=== PATIENT | female | born 1960 | race Caucasian/White ===

== ENCOUNTER 2020-02-13 11:56 | Outpatient (REF) | payer OTHER, SELFPAY ==
[2020-02-13 14:28] LABS: Estimated Average Glucose 306 mg/dL; Hemoglobin A1c % 12.3 %
[2020-02-13 15:19] LABS: Alanine Aminotransferase 20 U/L (0-31); Alkaline Phosphatase 124 U/L (39-117); Anion Gap 13 (12-20); Aspartate Amino Transferase 13 U/L (5-31); Bilirubin Total < 0.2 mg/dL (0.0-1.0); Blood Urea Nitrogen 11 mg/dL (9-16); Calcium 9.2 mg/dL (8.4-10.2); Carbon Dioxide 29 mmol/L (22-29); Chloride 100 mmol/L (96-108); Cholesterol 221 mg/dL; Estimated Glomerular Filt Rate > 60; Glucose Fasting 110 mg/dL (60-99); HDL Cholesterol 52 mg/dL; LDL Cholesterol Calculated 142 mg/dl; Potassium 3.4 mmol/l (3.3-5.1); Sodium 139 mmol/L (135-145); Total Protein 7.1 g/dL (6.5-8.0); Triglycerides 135 mg/dL
[2020-02-15 17:21] LABS: Lyme Abs Screen <0.90 index
== END 2020-02-13 11:57 | disposition home or self-care (01) ==
LOC: HO.HMGCLDS 11:56
PROVIDERS: PCP Internal Medicine; Visit Provider Internal Medicine
DX: E11.9 Type 2 diabetes mellitus without complications (principal); F41.8 Other specified anxiety disorders; I10 Essential (primary) hypertension
CPT/HCPCS: 80053; 80061; 83036; 84443; 86618

== ENCOUNTER → 2020-03-02 11:30 | Outpatient (BNVA) | payer OTHER, SELFPAY | PROVIDERS: PCP Internal Medicine; Visit Provider Nurse Practitioner Gerontology | DX: E11.65 Type 2 diabetes mellitus with hyperglycemia (principal); I10 Essential (primary) hypertension; E78.5 Hyperlipidemia, unspecified; Z79.4 Long term (current) use of insulin | CPT/HCPCS: 82947 ==

== ENCOUNTER → 2020-04-06 11:20 | Outpatient (BNVA) | payer OTHER, SELFPAY | PROVIDERS: PCP Internal Medicine; Visit Provider Nurse Practitioner Gerontology | DX: E11.65 Type 2 diabetes mellitus with hyperglycemia (principal); Z79.4 Long term (current) use of insulin; E78.5 Hyperlipidemia, unspecified; I10 Essential (primary) hypertension; E66.01 Morbid (severe) obesity due to excess calories; Z68.38 Body mass index [BMI] 38.0-38.9, adult | CPT/HCPCS: 82947 ==

== ENCOUNTER 2020-05-28 10:53 | Outpatient (REF) | payer OTHER, SELFPAY ==
[2020-05-28 15:36] LABS: Estimated Average Glucose 134 mg/dL; Hemoglobin A1c % 6.3 %
== END 2020-05-28 10:54 | disposition home or self-care (01) ==
LOC: HO.10HDL 10:53
PROVIDERS: Visit Provider Nurse Practitioner Gerontology
DX: E11.65 Type 2 diabetes mellitus with hyperglycemia (principal); Z79.4 Long term (current) use of insulin
CPT/HCPCS: 36415; 83036

== ENCOUNTER 2020-06-07 10:02 | Outpatient (REF) | payer OTHER, SELFPAY ==
--- NOTE | ~2020-06-07 | FL_ITS ---
EXAMINATION: FL BARIUM SWALLOW CLINICAL INFORMATION: Dysphagia. Patient provides additional history of Zenker's diverticulum status post closure x2 in the distant past. COMPARISON: None TECHNIQUE: Barium swallow examination is performed using fluoroscopic evaluation in addition to multiple fluoroscopic spot views. The patient is imaged both upright and prone and using both thick and thin sulfate along with effervescent granules. Fluoroscopy time: 1.7 minutes DAP: 15.29 Gycm2 Images: 93 FINDINGS: Preliminary fluoroscopic spot views in AP and lateral planes show no cervical surgical clips. Swallowing function is normal and there is no aspiration. The cervical esophagus has a Zenker's diverticula which promptly fills and empties during swallowing. There is no significant retention of contrast after swallowing. The diverticulum measures approximately 3 cervical vertebral bodies in vertical dimension; approximately 1 cervical vertebral bodies in AP dimension; and 1.25 cervical vertebral bodies dimension across. The thoracic esophagus show normal motility. No tertiary contractions. There is no obstruction or stricture or ulceration. No hiatal hernia or reflux demonstrated during fluoroscopy. FL/FL barium swallow IMPRESSION: 1. Cervical Zenker's diverticulum which promptly fills and empties with swallowing. No significant retention of contrast after swallowing. No aspiration. 2. Thoracic esophagus unremarkable.
== END 2020-06-07 10:03 | disposition home or self-care (01) ==
LOC: HO.XRAY 10:02
PROVIDERS: Visit Provider Internal Medicine
DX: R13.10 Dysphagia, unspecified (principal)
CPT/HCPCS: 74220

== ENCOUNTER 2020-06-15 08:58 | Day surgery (SDC) | payer OTHER, SELFPAY ==
[2020-06-12 12:19] VITALS: BMI 33.6
--- NOTE | 2020-06-14 10:20 | HO.ANESPROP2 ---
Documented by User: Namita Lima 06/14/20 10:24 HPI - Anesthesia Eval Consult details Narrative: 59yo F for Upper Endoscopy with Balloon Dilitation PMFSH Active Problems Active Problems: All Active Problems (Updated 06/12/20 @ 12:30 by Tena Deng) Type 2 diabetes mellitus with hyperglycemia, with long-term current use of insulin (Acute) Essential hypertension (Acute) Hyperlipidemia LDL goal <70 (Acute) BMI 34.0-34.9,adult (Acute) Varicose veins of both lower extremities with pain (Acute) GERD (gastroesophageal reflux disease) (Acute) Past Medical History Medical History BMI 34.0-34.9,adult Essential hypertension GERD (gastroesophageal reflux disease) Hyperlipidemia Hyperlipidemia LDL goal <70 Lab test negative for COVID-19 virus Myocardial infarction Sleep apnea Type 2 diabetes mellitus with hyperglycemia, with long-term current use of insulin Varicose veins of both lower extremities with pain Family History Family History Father CVD (cardiovascular disease) Myocardial infarction Unknown family medical history Mother Alzheimer's disease Unknown family medical history Brother No problems noted. Sister No problems noted. Sister No problems noted. Son No problems noted. Surgical History Surgical History H/O colonoscopy Hx of abdominoplasty Hx of cardiac cath Hx of section Social History Social History Household Members: Spouse and Children Are you a primary healthcare administrative assistant to a significant other at home: No Do you presently have visiting nurse or other home services: No Smoking Status: Former smoker Tobacco Type: Cigarette Smoked in Last 30 Days: No Smoking Quit Date: 1980 Use of substances other than those prescribed or required for medical reasons: No Have you been hit, kicked, punched, or otherwise hurt by someone within the past year? If so, by whom?: No Advance Directives Information Provided: No Recently lost weight without trying: No Meds Allergies Allergy/AdvReac Type Severity Reaction Status Date / Time egg [Egg] Allergy Intermediate severe GI Verified 06/12/20 12:29 pain Penicillins Allergy Intermediate Swelling Verified 06/12/20 12:29 Home Medications Medication Instructions Recorded Confirmed Last Taken Type amlodipine 10 mg tablet 10 mg PO DAILY 03/02/20 06/12/20 Unknown History duloxetine 60 mg capsule,delayed 120 mg PO DAILY 03/02/20 06/12/20 Unknown History release furosemide 80 mg tablet 80 mg PO DAILY 03/02/20 06/12/20 Unknown History metoprolol succinate 50 mg 50 mg PO DAILY 03/02/20 06/12/20 Unknown History tablet,extended release 24 hr simvastatin 20 mg tablet 20 mg PO BEDTIME 03/02/20 06/12/20 Unknown History Exam Exam Date and Time: June 14, 2020 1020 Height,Weight and Vital Signs: Height 5 ft 3 in Weight 86.183 kg Narrative Narrative: EKG 12/2019 ST @ [address] abnormality Nuc Stress 2018 nml myocardial perfusion imaging Echo 09/2018 (technically limited study) Nml LV sys function with impaired relaxation filling pattern Mild LAE Limited eval of cardiac valves with normal doppler Nml RV sys pressure No pericardial effusion Documented by User: Anny Alexis 06/15/20 09:16 [facility] Past Medical History Medical History BMI 34.0-34.9,adult Essential hypertension GERD (gastroesophageal reflux disease) Hyperlipidemia Hyperlipidemia LDL goal <70 Lab test negative for COVID-19 virus Myocardial infarction Sleep apnea Type 2 diabetes mellitus with hyperglycemia, with long-term current use of insulin Varicose veins of both lower extremities with pain Family History Family History Father CVD (cardiovascular disease) Myocardial infarction Unknown family medical history Mother Alzheimer's disease Unknown family medical history Brother No problems noted. Sister No problems noted. Sister No problems noted. Son No problems noted. Surgical History Surgical History H/O colonoscopy Hx of abdominoplasty Hx of cardiac cath Hx of section Social History Social History Household Members: Spouse and Children Are you a primary healthcare administrative assistant to a significant other at home: No Do you presently have visiting nurse or other home services: No Smoking Status: Former smoker Tobacco Type: Cigarette Smoked in Last 30 Days: No Smoking Quit Date: 1980 Use of substances other than those prescribed or required for medical reasons: No Have you been hit, kicked, punched, or otherwise hurt by someone within the past year? If so, by whom?: No Advance Directives Information Provided: No Recently lost weight without trying: No Meds Allergies Allergy/AdvReac Type Severity Reaction Status Date / Time egg [Egg] Allergy Intermediate severe GI Verified 06/12/20 12:29 pain Penicillins Allergy Intermediate Swelling Verified 06/12/20 12:29 Home Medications Medication Instructions Recorded Confirmed Last Taken Type amlodipine 10 mg tablet 10 mg PO DAILY 03/02/20 06/12/20 Unknown History duloxetine 60 mg capsule,delayed 120 mg PO DAILY 03/02/20 06/12/20 Unknown History release furosemide 80 mg tablet 80 mg PO DAILY 03/02/20 06/12/20 Unknown History metoprolol succinate 50 mg 50 mg PO DAILY 03/02/20 06/12/20 Unknown History tablet,extended release 24 hr simvastatin 20 mg tablet 20 mg PO BEDTIME 03/02/20 06/12/20 Unknown History Exam Airway Mallampati Class: II TM Dist: >3cm Neck ROM: Full Denture: Upper Loose/Missing/Broken Teeth: Yes and Upper (Edentulous upper) Heart: RRR Lungs: CTA Assessment and Plan Assessment Anesthesia Assessment: Anesthesia Plan Discussed and Chart Reviewed Final Anesthetic Review NPO: Yes ASA Class: III Final Preanesthetic Review: Meds/Allgs Chart Reviewed, Consent Obtained/Reviewed and Anes Risks/Benef Reviewed Patient Risk: Intermediate Procedure Risk: Intermediate Anesthetic Plan Anesthetic Plan: MAC: Disposition: Standard PACU
[2020-06-15 09:23] VITALS: BP 167/90; PULSE 102; RESP 18; TEMP 36.2; O2SAT 97
[2020-06-15] MEDS: Lactated Ringers 1,000 ML 100 ML IVCONT (09:32)
[2020-06-15 10:14] VITALS: BP 113/74; PULSE 101; RESP 16; TEMP 36.1; O2SAT 94
--- NOTE | 2020-06-15 10:23 | PM.OP ---
Brief Operative Note Date of Service: 06/15/20 Pre-op diagnosis: GERD Post-op diagnosis: other (Hiatal hernia, gastritis, duodenitis) Procedure: EGD with biopsies Surgeon: Sree Abrams Anesthesia: MAC Estimated blood loss (mL): 3.0 Pathology: other (A. Gastric antrum B. EG Junction at 36cm) Condition: stable Disposition: PACU
[2020-06-15 10:29] VITALS: BP 119/66; PULSE 93; RESP 18; TEMP 36.1; O2SAT 96
--- NOTE | 2020-06-15 10:41 | OP_ITS ---
SURGEON: Sree Abrams MD INDICATIONS: The patient presents for evaluation of chronic gastroesophageal reflux. Full consent has been obtained from her for this, including risks of bleeding and perforation. PREOPERATIVE DIAGNOSIS: Chronic gastroesophageal reflux. POSTOPERATIVE DIAGNOSIS: PROCEDURE PERFORMED: Esophagogastroduodenoscopy with biopsies. ESTIMATED BLOOD LOSS: COMPLICATIONS: ANESTHESIA: Monitored anesthesia care. ASSISTANTS: SPECIMENS: POSTOPERATIVE DIAGNOSES: Chronic gastroesophageal reflux, hiatal hernia, duodenitis, and gastritis. DESCRIPTION OF PROCEDURE: The patient was placed in the left lateral decubitus position. The Olympus video gastroscope was passed in the posterior oropharynx and upper esophagus under direct vision. The scope was passed slowly into the distal esophagus. The gastroesophageal junction appeared at 36 cm. There was some slight irregularity consistent with reflux, but no evidence of esophagitis nor any definitive evidence of Hernandez's mucosa. There was no sign of any esophageal stricture nor ring. The scope easily entered into the stomach. There was a small hiatal hernia. The scope was advanced to the pylorus and the duodenum was cannulated to the descending portion. The duodenum including the bulb was carefully inspected. There was some mild duodenitis in the duodenal bulb, but no erosions or ulceration. The scope was withdrawn back in the stomach. The pre-pyloric antrum had some mild areas of erythema and friability, but no erosions or ulceration. There was good peristalsis. Biopsies were obtained from the prepyloric antrum. The scope was retroflexed visualizing the proximal stomach carefully which appeared normal, without any sign of mass or ulceration. The scope was straightened out and withdrawn back into the esophagus. Biopsies were obtained at the EG junction at 36 cm. Proximal to that, the esophageal mucosa appeared normal. The scope was withdrawn from the patient. She tolerated the procedure well and was returned to the recovery area in stable condition. IMPRESSION: 1. Hiatal hernia, gastroesophageal reflux. 2. Mild gastritis. 3. Mild duodenitis. PLAN: The results of the biopsies will be checked. She has been using omeprazole 40 mg daily with partial relief of her symptoms. I shall see her in 2 to 3 months for a followup visit. A recent barium swallow did reveal her known Zenker's diverticulum, but was otherwise unremarkable. There was no sign of any esophageal obstruction. If need be, we can increase the PPI treatment at some point and/or consider workup for esophageal reflux and hiatal hernia surgery. In that case, she would need esophageal motility studies and a 24-hour pH study. This has been discussed with her . MD BROOKE Bobby/VIOLETTE / [id number]
== END 2020-06-15 11:22 | disposition home or self-care (01) ==
PROVIDERS: PCP Internal Medicine; Visit Provider Internal Medicine
PROC: (CPT 43239; principal; 2020-06-15 09:50)
DX: K21.9 Gastro-esophageal reflux disease without esophagitis (principal); K29.50 Unspecified chronic gastritis without bleeding; K29.80 Duodenitis without bleeding; K44.9 Diaphragmatic hernia without obstruction or gangrene; I10 Essential (primary) hypertension; E11.9 Type 2 diabetes mellitus without complications; E11.65 Type 2 diabetes mellitus with hyperglycemia; Z79.4 Long term (current) use of insulin; Z88.0 Allergy status to penicillin; Z87.891 Personal history of nicotine dependence; Z79.899 Other long term (current) drug therapy
CPT/HCPCS: 43239; 88305; 88342; J2250

== ENCOUNTER → 2020-08-01 08:02 | Outpatient (BNVA) | payer OTHER, SELFPAY | PROVIDERS: PCP Internal Medicine; Visit Provider Nurse Practitioner Gerontology ==

== ENCOUNTER → 2021-02-25 07:34 | Outpatient (BNVA) | payer OTHER, SELFPAY | PROVIDERS: PCP Internal Medicine; Visit Provider Nurse Practitioner Gerontology | DX: E11.9 Type 2 diabetes mellitus without complications (principal) ==

== ENCOUNTER 2022-12-06 10:58 | Outpatient (AMB) | payer OTHER, SELFPAY ==
--- OUTSIDE RECORDS SUMMARY | 2022-12-06 10:59 | XMS_ITS ---
Author Name Sree Abrams Address [address] [place] [address] Organization [facility] Address [address] [place] [address] Care Team Providers Care Rn Case Management Name Role Phone Sree Abrams Unavailable [phone] PROBLEMS Type Condition ICD9-CM Code PAT24-QQ Code Onset Dates Condition Status SNOMED Code Problem Dysphagia R13.10 Active 53629511 Problem GERD (gastroesophage al reflux disease) K21.9 Active 859410965 ALLERGIES Substance Reaction Event Type Date Status Eggs Unknown Non Drug Allergy Apr, Active Penicillin Unknown Non Drug Allergy Apr, Active ENCOUNTERS Encounter Location Date Diagnosis [facility] [address] [place] [phone] May, [facility] Out[facility] [address] [place] [id number] May, GERD (gastroesophageal reflux disease) K21.9 ; Gastritis K29.70 ; Duodenitis K29.80 and Hiatal hernia K44.9 [facility] [address] [place] [phone] Apr, GERD (gastroesophageal reflux disease) K21.9 and Dysphagia R13.10 [facility] [address] [place] [phone] Apr, [facility] [address] [place] [phone] Dec, IMMUNIZATIONS No Known Immunizations SOCIAL HISTORY Never Assessed REASON FOR REFERRAL FUNCTIONAL STATUS PLAN OF CARE Activity Details VITAL SIGNS Weight 190 lbs 2020-05-25 Height 62 in 2020-05-25 BMI 34.75 kg/m2 2020-05-25 Temperature 97.5 degrees Fahrenheit Blood pressure systolic 000 mm Hg Blood pressure diastolic 00 mm Hg 2020-04 MEDICATIONS Medication Instructions Dosage Frequency Start Date End Date Du ration Status Ibuprofen Active Furosemide Activ e HumaLOG KwikPen Active Aspirin 81 Activ e DULoxetine HCl A ctive Omeprazole 40 MG Orally Once a day 1 q am 24h Apr, 30 day(s) Active Trulicity Active amLODIPine Besylate Active Daliresp Active Jardiance Active Metoprolol Succinate ER Active PROCEDURES Procedure Date Ordered Result Body Site BP SCR PRFRM RCMDD DEFIND SCR INTVL May 25, 2020 TOBACCO NON-USER May 25, 2020 DOC MEDS VERIFIED W/PT OR RE May 25, 2020 COLORECTAL CA SCREEN DOC REV May 25, 2020 UPPER GI ENDOSCOPY, BIOPSY Jun 15, 2020 RESULTS Name Result Date Reference Range FL barium swallow 2020-06-07 REASON FOR VISIT gerd, please schedule a f/u in 3 months., dysphagia,gerd, Patient presents today for gerd, COVID Screen/ confirmed appt neg covid questions, anemia,GI Bleed,epi gastric pain, anemia,GI Bleed,epi gastric pain, soon apt Insurance Providers Health Insurance Type Health Plan Insurance Address Health Plan Insurance Phone Health Plan Insurance Name Health Plan Coverage Dates Member ID Patient Relationship to Subscriber Patient Address Patient Phone Patient Name Patient Date of Subscriber ID Subscriber Name Subscriber Date of Group No [employer] [address] [employer] [facility] [id number] [employer] self Vivi Lisonidopaolo ski-Wrot h [id number]
--- NOTE | 2022-12-06 11:54 | AM.OFFWIN_ITS ---
Intake Vital Signs 12/06/22 11:55 Height 5 ft 3 in BP 150/80 H Blood Pressure Location Lt brachial Position Sitting Pulse 80 Pulse Source Pulse Oximeter Temp 96.9 F Temp Source Temporal Artery Scan Pulse Oximetry (%) 94 Oxygen Delivery Method Room Air Intake Visit Reasons: EST/cough and sob Intake Note: pt is her for cough with SOB for 4 weeks Patient Tobacco Use Status: Never used Tobacco Allergies egg [Egg] Allergy (Intermediate, Verified 12/06/22 11:54) severe GI pain Penicillins Allergy (Intermediate, Verified 12/06/22 11:54) Swelling Do you need a note to return to daycare/school/sports/work: No HPI EST/cough and sob HPI Details Patient is a 62-year-old female who comes to the walk-in clinic complaining of cough with shortness of breath for about a month now, and feels tired. She states that she is not sure if she had postnasal drip when the cough originally started, but it very quickly became persistent congested cough in her chest, and she has difficulty with getting mucus out. She states that she uses albuterol nebulizer with limited relief. Otherwise only trialing [id number] cough medication. She denies chest pain, fever or chills, weakness or dizziness, headache, runny nose, sore throat, loss of sense of taste or smell, nausea vomiting or diarrhea, or other significant associated sym ptoms. She reports a history of adult onset asthma, and denies COPD diagnosis, although she states that it is possible. She is a former long-term smoker. She has not seen a advertising sales assistant. She does have a primary care provider, although she states that she is currently considering a new provider. [facility] Medical History BMI 34.0-34.9,adult Controlled diabetes mellitus without complication, without long-term current use of insulin Essential hypertension GERD (gastroesophageal reflux disease) Hyperlipidemia Hyperlipidemia LDL goal <70 Lab test negative for COVID-19 virus Myocardial infarction PVD (peripheral vascular disease) Sleep apnea Varicose veins of both lower extremities with pain Surgical History H/O colonoscopy Hx of abdominoplasty Hx of cardiac cath Hx of section Family History Father CVD (cardiovascular disease) Myocardial infarction Unknown family medical history Mother Alzheimer's disease Unknown family medical history Brother No problems noted. Sister No problems noted. Sister No problems noted. Son No problems noted. Social History Household Members: Spouse and Children Are you a primary ocular care technician to a significant other at home: No Do you presently have visiting nurse or other home services: No Alcohol intake: current Alcohol intake frequency: does not drink Patient Tobacco Use Status: Never used Tobacco Review of Systems Const All systems reviewed & are unremarkable except as noted in HPI and below Physical Exam Vital Signs: Last Vital Signs Temp 96.9 F 12/06/22 11:55 Pulse 80 12/06/22 11:55 BP 150/80 H 12/06/22 11:55 Pulse Ox 94 12/06/22 11:55 Oxygen Delivery Method Room Air 12/06/22 11:55 Const General: cooperative, no acute distress, alert, awake, Physically active, ill appearing, tired appearing and well groomed; No comfortable, in distress, anxious, diaphoretic, intoxicated appearing or poor hygiene Nutritional Appearance: obese Orientation/consciousness: patient oriented x3 Limitations: no limitations Neck Neck: Yes normal visual inspection Chest Chest palpation & inspection: normal palpation of entire chest wall Resp Effort & Inspection: able to speak in complete sentences, normal respiratory pattern, no audible wheezes, Actively coughing, respiratory effort not decrea sed, no grunting, labored (Mildly labored with long sentences), no nasal flaring, no pursed lip breathing, no respiratory distress, no retractions, no segmental paradox chest wall movement, no stridor, not tachypneic, no tripod positioning, no use of accessory muscles, prolonged expiratory phase and symmetric chest movement Auscultation: no crackles, no rales, no rhonchi, wheezes (Scattered throughout) scattered wheezes, diminished lung sounds and No rub present Cardio Palpation: normal PMI Rate: regular rate Rhythm: regular rhythm Heart sounds: S1 normal heart sound present and S2 normal heart sound present Skin Other: Good color, warm and dry Neuro General: patient oriented x3 Psych Appearance: grossly normal Mental Status: mental status grossly normal Speech and movement: Normal speech and movement present Affect: normal affect Attitude: cooperative Thought process: Normal thought process present Insight: Good insight present (Psych) Judgement: Good judgement present (Psych) Assessment & Plan Assessment & Plan (1) Pneumonia: Code(s): J18.9 - Pneumonia, unspecified organism Plan Patient with likely pneumonia, and history of asthma versus COPD exacerbation (patient states she has a history of adult onset asthma and has never been diagnosed with COPD, although she does have a history of heavy smoking in the past). She has some scattered wheezing throughout lung molina today, and plain film chest x-ray shows possible pneumonia at the right lung base per radiologist read. There was also a nodule seen, which radiologist recommends CT scan follow-up for. Patient notified of this today. She was also advised to monitor her symptoms carefully, and go to the emergency department if this persists or worsens despite the antibiotic and steroid prescribed for her today. She is aware of this and agreed. She should follow-up with PCP for this, as well as further imaging of the nodule, workup for possible COPD, and/or pulm referral. Orders: Orders XR chest 2V 12/06/22 R05.9 - Cough, unspecified Medications: New prednisone 40 mg (2 x 20 mg) PO DAILY 10 tabs 0RF 5 days azithromycin take 500 mg today (day 1), then 250 mg for 4 days (days 2-5) PO 6 tabs 0RF Coding Level of Care Code Est Pt Level 4 (12212) Diagnoses Pneumonia J18.9
[2022-12-06 11:55] VITALS: BP 150/80; PULSE 80; TEMP 36.1; O2SAT 94
== END 2022-12-06 13:22 | disposition home or self-care (01) ==
PROVIDERS: PCP Internal Medicine; Visit Provider Physician Assistant Medical
DX: J18.9 Pneumonia, unspecified organism (principal)
CPT/HCPCS: 99051; 99214

== ENCOUNTER 2022-12-06 13:04 | Outpatient (REF) | payer OTHER, SELFPAY ==
--- NOTE | ~2022-12-06 | XR_ITS ---
EXAMINATION: XR CHEST CLINICAL INFORMATION: Cough COMPARISON: Previous chest x-ray December 2019 TECHNIQUE: 2 views of the chest were obtained. FINDINGS: The cardiac and mediastinal contours are stable. There is atelectasis or small infiltrate at the right cardiophrenic angle. There is a 1.2 cm nodular density at the right lung apex projecting over the right clavicular head. The lungs are otherwise clear. No pleural effusion or pneumothorax. Degenerative changes of the spine. XR/XR chest 2V IMPRESSION: Atelectasis or small infiltrate at the right lung base. Question right apical nodule projecting over the right clavicular head. Follow-up lordotic view of the chest or chest CT should be considered.
== END 2022-12-06 13:05 | disposition home or self-care (01) ==
LOC: HO.HMGCX 13:04
PROVIDERS: PCP Registered Nurse; Visit Provider Physician Assistant Medical
DX: R05.9 Cough, unspecified (principal)
CPT/HCPCS: 71046

== ENCOUNTER 2023-02-10 15:16 | Outpatient (AMB) | payer OTHER, SELFPAY ==
[2023-02-10 15:18] VITALS: BP 124/72; PULSE 101
--- NOTE | 2023-02-10 15:18 | A.OFFVIS_ITS ---
Intake Vital Signs 02/10/23 15:18 Height 5 ft 3 in BP 124/72 Blood Pressure Location Lt brachial Position Sitting Pulse 101 H Pulse Source Pulse Oximeter Intake Visit Reasons: s/b pcp request Intake Note: s/b pcp request Regional Program Manager Required: No Allergies egg [Egg] Allergy (Intermediate, Verified 02/10/23 15:21) severe GI pain Penicillins Allergy (Intermediate, Verified 02/10/23 15:21) Swelling Medication List - Last Reconciled 02/10/23 by ERICA Harrington albuterol sulfate 90 mcg/actuation 2 puffs inhalation Q4H amlodipine 10 mg PO DAILY blood sugar diagnostic (FreeStyle Lite Strips) As directed four times a day blood-glucose meter (FreeStyle Lite Meter kit) As directed dulaglutide (Trulicity) 3 mg (0.5 mL) subcut QWEEK duloxetine 120 mg (2 x 60 mg) PO DAILY empagliflozin (Jardiance) 25 mg PO QAM flash glucose scanning reader ([employer] Angelica 2 [place]) As directed to monitor blood sugar four or more times a day flash glucose sensor (FreeStyle Angelica 2 Sensor kit) As directed fluticasone furoate-vilanterol 200-25 mcg/dose (Breo Ellipta) 1 ea inhalation DAILY furosemide 80 mg PO DAILY lancets (FreeStyle Lancets) As directed three time a day metoprolol succinate ER 25 mg PO DAILY pen needle, diabetic (BD Ultra-Fine Short Pen Needle) four times a day HPI s/b pcp request HPI Details Vivi is a 62-year-old female with past medical history of morbid obesity, hypertension, diabetes, sleep apnea, heart failure with preserved EF who presents for evaluation of chest discomfort and shortness of breath. Her last prior visit to our office was 09/30/2018. Today she reports that she believe she had an RI approximately 8 weeks ago. She was having discomfort in her left chest which radiated up to her jaw. It was 7/10 in severity and lasted approximately 15 minutes. She took Terese-[place] with no immediate improvement in the symptom. Since then she has had some mild episodes but none as severe as the initial episode. She stated her pain was nothing like she had ever experienced before. She has chronic shortness of breath with activity which is overall unchanged. She is noticing some newer fatigue. No concerning palpitations, presyncope, syncope, falls, PND, orthopnea or edema. She admits to being mostly sedentary. Taking meds as directed. [facility] Medical History PVD (peripheral vascular disease) Controlled diabetes mellitus without complication, without long-term current use of insulin Sleep apnea Lab test negative for COVID-19 virus BMI 34.0-34.9,adult Hyperlipidemia LDL goal <70 Varicose veins of both lower extremities with pain Myocardial infarction Hyperlipidemia Essential hypertension GERD (gastroesophageal reflux disease) Surgical History H/O colonoscopy Hx of abdominoplasty Hx of section Hx of cardiac cath Family History Father CVD (cardiovascular disease) Myocardial infarction Unknown family medical history Mother Alzheimer's disease Unknown family medical history Brother No problems noted. Sister No problems noted. Sister No problems noted. Son No problems noted. Social History Household Members: Spouse and Children Are you a primary critical care physician to a significant other at home: No Do you presently have visiting nurse or other home services: No Alcohol intake: current Alcohol intake frequency: does not drink Patient Tobacco Use Status: Never used Tobacco Review of Systems Const All systems reviewed & are unremarkable except as noted in HPI and below ENT Denies dizziness Card Reports chest pain, Reports chest pain at rest, Denies chest pain with activity, Denies rapid heart rate, Denies pedal edema, Denies edema, Denies leg edema, Denies lightheadedness, Denies palpitations, Denies dyspnea, Reports dyspnea on exertion and Denies orthopnea Resp Denies cough, Denies dyspnea and Reports dyspnea on exertion GI Denies hematochezia and Denies change in stool character Musc Denies abnormal gait, Denies limited range of motion, Denies muscle cramps, Denies muscle weakness, Denies numbness, Denies radiating pain into limb, Denies stiffness and Denies tingling Neuro Denies abnormal gait, Denies dizziness, Denies numbness and Denies tingling Endo Denies palpitations Physical Exam Vital Signs: Last Vital Signs Pulse 101 H 02/10/23 15:18 BP 124/72 02/10/23 15:18 Const Other: obese General: cooperative, comfortable and no acute distress Orientation/consciousness: patient oriented x3 Neck Neck: Yes normal visual inspection Resp Effort & Inspection: normal respiratory effort Auscultation: clear to auscultation bilaterally, no crackles, no rales, no rhonchi and no wheezes Cardio Jugular venous distension: no JVD Rate: regular rate Rhythm: regular rhythm Heart sounds: S1 normal heart sound present, S2 normal heart sound present, no murmurs and no rubs Neuro General: patient oriented x3 Extrem General: Yes normal to inspection, No no pedal edema and No calf tenderness Psych Appearance: grossly normal Mental Status: mental status grossly normal Speech and movement: Normal speech and movement present Assessment & Plan Assessment & Plan (1) Chest discomfort: Code(s): R07.89 - Other chest pain Plan: Episode of chest discomfort approximately 8 weeks ago with radiation up to her jaw lasting 15 minutes, 7/10 in severity. Minor episode since then. Nonexertional. EKG done by her PCP on 01/29/2023 shows sinus rhythm with slight T-wave inversions in the lateral leads. She denies any chest discomfort today. She has known cardiac risk factors of obesity, hypertension, hyperlipidemia and diabetes. There is a high likely this of coronary artery disease. Will check an echocardiogram to assess EF, wall motion. Will check a pharmacological nuclear stress test to assess for ischemia/infarct. She will not be able to walk on the treadmill due to shortness of breath with ambulation. Signs and symptoms of angina reviewed with her. Cardiology follow-up in 4-6 weeks. Emerg ency care if ever needed for recurrent symptoms. (2) Essential hypertension: Code(s): I10 - Essential (primary) hypertension Plan: Well controlled at present time. No med changes made. Continue amlodipine, Lasix, metoprolol. (3) Hyperlipidemia LDL goal <70: Code(s): E78.5 - Hyperlipidemia, unspecified Plan: [place] LDL goal less than 70 in patient with diabetes. Today the atorvastatin is not active on her list for unclear reason. She should be on moderate dose statin. No recent lipid profile for review. She tells me labs are ordered by her PCP. (4) Controlled diabetes mellitus without complication, without long-term current use of insulin: Code(s): E11.9 - Type 2 diabetes mellitus without complications Qualifiers: Diabetes mellitus type: type 2 Qualified Code(s): E11.9 - Type 2 diabetes mellitus without complications Plan: She reports her hemoglobin A1c is down to about 7. In the past she had been running as high as 12. Followed by PCP. Orders: Orders CA echo transthoracic complete Today E11.9 - Type 2 diabetes mellitus without complications, E78.5 - Hyperlipidemia, unspecified, I10 - Essential (primary) hypertension, R06.02 - Shortness of breath, R07.89 - Other chest pain CA lexiscan stress w regi Today R06.02 - Shortness of breath, R07.89 - Other chest pain NM cardiolite stress test Today R06.02 - Shortness of breath, R07.89 - Other chest pain Medications: Changed From metoprolol succinate ER 50 mg PO DAILY 90 tabs 3RF To metoprolol succinate ER 25 mg PO DAILY Coding Level of Care Code New Pt Level 4 (00773) Diagnoses Chest discomfort R07.89 Essential hypertension I10 Hyperlipidemia LDL goal <70 E78.5 Controlled type 2 diabetes mellitus without complication, without long-term current use of insulin E11.9 Diabetes mellitus type: type 2 Time Spent (min) 28
== END 2023-02-10 15:53 | disposition home or self-care (01) ==
PROVIDERS: PCP Registered Nurse; Visit Provider Nurse Practitioner Family
DX: R07.89 Other chest pain (principal); I10 Essential (primary) hypertension; E78.5 Hyperlipidemia, unspecified; E11.9 Type 2 diabetes mellitus without complications
CPT/HCPCS: 99204

== ENCOUNTER → 2023-02-10 15:16 | Outpatient (BNVA) | payer OTHER, SELFPAY | PROVIDERS: PCP Registered Nurse; Visit Provider Nurse Practitioner Family ==

== ENCOUNTER → 2023-02-13 08:25 | Outpatient (REF) | payer OTHER, SELFPAY ==
--- NOTE | ~2023-02-13 | NM_ITS ---
Myocardial perfusion study Indication: Chest pain to evaluate for myocardial ischemia Technique: The patient was brought in for a Lexiscan perfusion study on 02/13/2023. Patient performed low-level exercise and was injected 0.4 mg of Lexiscan intravenously. Within a minute of injection, 25 mCi of sestamibi was given intravenously. Images were obtained using the SPECT gamma camera interlaced with the gating device. Images were obtained in supine position. Resting perfusion study was performed on 02/16/2023. Patient was administered 25 mCi of sestamibi intravenously at rest. Images were then obtained in supine position. Images obtained with and without CT attenuation. Total DLP 137 mGy-cm. Images were processed with the software and compared side to side in short axis, horizontal long axis and vertical long axis views. Findings: The stress perfusion study showed non attenuated images show normal uptake of radiotracer in all segments of LV myocardium. Attenuation corrected studies show minimally reduced uptake in the apex of the LV myocardium. The gated study shows normal LV systolic function with calculated LVEF of 62%. LV cavity is normal in size. The gated study shows normal systolic wall thickening and contraction of segments. Resting study shows no change in perfusion pattern compared to stress perfusion study. Gating at rest reveals normal systolic wall motion with ejection fraction at 53%. The findings are consistent with normal myocardial perfusion. NM/NM regi perf SPECT rest & str Impression: 1. Myocardial perfusion imaging study shows normal myocardial perfusion 2. Gated LVEF is 62% 3. Transient ischemic dilatation not present EKG is nondiagnostic for ischemia
--- NOTE | 2023-02-13 08:28 | CA_ITS ---
Acquisition Time: 2023-02-13 08:27:41 Total Exercise Time: 00:02:00 Test Indications: CP, SOB Medications: SEE H Protocol: LEXISCAN Max HR: 112 BPM 71% of Pred: 156 BPM Max BP: 140/070 mmHG Max Work Load: 1.0 METS Pharmaocligcal stress test with Lexiscan injection while sitting and kicking her legs, with mild to moderate SOB, without chest discomfort, without arrhythmias, with normotensive response to injection, with nondiagnsotic EKGs. Breathing returned to normal in recovery. Nuclear images pending. Test reviewed with Dr. Simmons. Referred By: Elsie Viramontes Overread By: Alina Penaloza
== END ==
LOC: HO.CARD 08:25
PROVIDERS: PCP Registered Nurse; Visit Provider Nurse Practitioner Family
DX: R07.89 Other chest pain (principal); R06.02 Shortness of breath
CPT/HCPCS: 78452; 93017; A9500; J0280; J2785

== ENCOUNTER → 2023-02-13 08:28 | Outpatient (BNV) | payer OTHER, SELFPAY | PROVIDERS: PCP Registered Nurse; Visit Provider Nurse Practitioner | DX: R07.89 Other chest pain (principal) | CPT/HCPCS: 78452; 93016; 93018 ==

== ENCOUNTER 2023-10-26 10:32 | Outpatient (AMB) | payer MEDICARE, SELFPAY ==
--- OUTSIDE RECORDS SUMMARY | 2023-10-26 10:34 | XMS_ITS | Patient Health Record ---
Author Organization [facility] Address [address] [place] [address] Care Team Providers Care Film Laboratory Technician Name Role Phone Alexandria Oliver MD Primary Care Provider Sree Sweeney [phone] ALLERGIES Allergen (clinical drug ingredient) Drug/Non Drug Allergy documented on EMR Reaction Allergy Type Onset Date Status Penicillin (uncoded) Unknown Allergy Active Eggs (uncoded) Unknown Allergy Activ e REASON FOR REFERRAL No Information MEDICATIONS Medication SIG (Take, Route, Fr equency, Duration) Notes Start Date End Date Status Omeprazole 40 MG 1 q am Orally Once a day for 30 day(s) 05/25/2020 Active Jardiance Active Ibuprofen Active Furosemide Active Metoprolol Succinate ER Active Trulicity Active amLODIPine Besylate Active DULoxetine HCl Activ e HumaLOG KwikPen Acti ve Daliresp Active Aspirin 81 Active IMMUNIZATIONS Vaccine Route Administration Date Status Comme nts Influenza Unknown 05/25/2020 Refused SOCIAL HISTORY Sex Assigned At : Social History Observation Description Sex Assigned At Unknown PROBLEMS Problem Type ICD Code Onset Dates Problem Status W/U Status Risk SNOMED Code Notes Problem GERD (gastroesopha geal reflux disease) (K21.9) Active confirmed Gastroesophagea l reflux disease (916238551) Problem Dysphagia (R13.10) Active confirmed Dysphagia (91454661) PLAN OF TREATMENT Pending Test Test Name Order Date XR BARIUM SWALLOW-ESOPHAGUS 05/25/2020 Pathology 06/15/2020 Future Test Test Name Order Date UPPER GI ENDOSCOPY [place] DILATION OF ESOPH 05/25/2020 Insurance Providers Payer Name Payer Address Payer Phone Subscriber Number Group Number Insured Name Patient Relationship to Insured Coverage Start Date Coverage End Date [facility] [employer] [address] [place] [address] [id number] [employer] Ila Vivi kuo Self - patient is the insured MEDICAL (GENERAL) HISTORY Medical History History ICD Code IDDM Heart Attack - 2017-- mild --neg cardiac cath--sees Dr. Beyer Hypertension Anxiety GERD Denies CVA,renal disease Reports 1 or 2 negative colonoscopies in [place] Asthma Sleep apnea-uses CPAP Surgical History Surgery Date(Month/Year) Abdominoplasty(Daphne griffith)-- needed a wound vac post op for 5 weeks--Dr. Hylton Approx 2013 Cataracts Describes 2 surgeries for po ssible repeair of a Zenker's diverticulum 2 months apart in approx 2006
--- NOTE | 2023-10-26 10:35 | MHC.OFFWIV ---
Intake Vital Signs 10/26/23 10:36 Height 5 ft 3 in Intake Visit Reasons: EP DM medication fill/Had no insurance Patient Tobacco Use Status: Never used Tobacco Allergies egg [Egg] Allergy (Intermediate, Verified 10/26/23 10:36) severe GI pain Penicillins Allergy (Intermediate, Verified 10/26/23 10:36) Swelling Do you need a note to return to daycare/school/sports/work: No PFSH Medical History PVD (peripheral vascular disease) Controlled diabetes mellitus without complication, without long-term current use of insulin Sleep apnea Lab test negative for COVID-19 virus BMI 34.0-34.9,adult Hyperlipidemia LDL goal <70 Varicose veins of both lower extremities with pain Myocardial infarction Hyperlipidemia Essential hypertension GERD (gastroesophageal reflux disease) Surgical History H/O colonoscopy Hx of abdominoplasty Hx of section Hx of cardiac cath Family History Father CVD (cardiovascular disease) Myocardial infarction Unknown family medical history Mother Alzheimer's disease Unknown family medical history Brother No problems noted. Sister No problems noted. Sister No problems noted. Son No problems noted. Social History Household Members: Spouse and Children Are you a primary caretaker to a significant other at home: No Do you presently have visiting nurse or other home services: No Alcohol intake: current Alcohol intake frequency: does not drink Patient Tobacco Use Status: Never used Tobacco Coding
[2023-10-26 10:36] VITALS: BP 134/72; PULSE 101; O2SAT 95; BMI 33.1
--- NOTE | 2023-10-26 14:08 | AM.OFFWIN_ITS ---
Intake Vital Signs 10/26/23 10:36 Height 5 ft 3 in Weight 187 lb 2 oz BMI 33.1 BP 134/72 Blood Pressure Location Lt brachial Position Sitting Pulse 101 H Pulse Source Pulse Oximeter Pulse Oximetry (%) 95 Oxygen Delivery Method Room Air Intake Visit Reasons: EP DM medication fill/Had no insurance Patient Tobacco Use Status: Never used Tobacco Allergies egg [Egg] Allergy (Intermediate, Verified 10/26/23 10:36) severe GI pain Penicillins Allergy (Intermediate, Verified 10/26/23 10:36) Swelling HPI HPI Comments History of Present Illness Details Patient is a 63-year-old female who is here stating she does not have a primary care doctor nor does she have insurance but she is missing out on all of her medications. She has given me a list as follows, 25 mg of metoprolol daily, 80 mg of furosemide daily, 60 mg of duloxetine daily, 25 mg of Jardiance daily and 10 mg of amlodipine daily. She states she has not had any of these medications since August. She states she was on the furosemide because of swelling in her legs but the swelling has not returned despite her not taking the medications, she also reports no shortness a breath or audible wheezing or trouble breathing. 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 [facility] Medical History PVD (peripheral vascular disease) Controlled diabetes mellitus without complication, without long-term current use of insulin Sleep apnea Lab test negative for COVID-19 virus BMI 34.0-34.9,adult Hyperlipidemia LDL goal <70 Varicose veins of both lower extremities with pain Myocardial infarction Hyperlipidemia Essential hypertension GERD (gastroesophageal reflux disease) Surgical History H/O colonoscopy Hx of abdominoplasty Hx of section Hx of cardiac cath Family History Father CVD (cardiovascular disease) Myocardial infarction Unknown family medical history Mother Alzheimer's disease Unknown family medical history Brother No problems noted. Sister No problems noted. Sister No problems noted. Son No problems noted. Social History Household Members: Spouse and Children Are you a primary rn coronary care unit to a significant other at home: No Do you presently have visiting nurse or other home services: No Alcohol intake: current Alcohol intake frequency: does not drink Patient Tobacco Use Status: Never used Tobacco Review of Systems Const All systems reviewed & are unremarkable except as noted in HPI and below Physical Exam Vital Signs: Last Vital Signs Pulse 101 H 10/26/23 10:36 BP 134/72 10/26/23 10:36 Pulse Ox 95 10/26/23 10:36 Oxygen Delivery Method Room Air 10/26/23 10:36 BMI result Body Mass Index 33.1 Const General: cooperative, healthy appearing, comfortable, no acute distress and well developed Orientation/consciousness: patient oriented x3 Limitations: no limitations HEENT Head: Yes normal to inspection Eyes General: appearance normal, both eyes and all related structures Neck Neck: Yes normal visual inspection and Yes full ROM Resp Effort & Inspection: normal respiratory effort and able to speak in complete s entences Auscultation: clear to auscultation bilaterally Cardio Rate: regular rate Rhythm: regular rhythm Heart sounds: normal S1 and S2 Skin General skin exam: no rashes or lesions noted Neuro General: patient oriented x3 Extrem General: Yes normal to inspection Assessment & Plan Assessment & Plan (1) Medication refill: Code(s): Z76.0 - Encounter for issue of repeat prescription Plan: CAROL Beck sat with patientfor 2 hours to determine her needs, determining Medicare status, get her started on applying for [employer] and getting care established with a PCP. I will refill meds but start with 20 mg of furosemide and 30 mg of duloxetine. These can be titrated up when she follows up with the nurse practitioner in a few weeks. Plan see above. Medications: New amlodipine 10 mg PO DAILY 14 tabs 0RF metoprolol succinate ER 25 mg (1/2 x 50 mg) PO DAILY 14 tabs 0RF furosemide 20 mg PO QAM 14 tabs 0RF duloxetine 30 mg PO DAILY 14 caps 0RF empagliflozin (Jardiance) 25 mg PO DAILY 14 tabs 0RF Discontinued amlodipine Discontinued Reason: Doctor's Order 10 mg PO DAILY 90 tabs 3RF furosemide Discontinued Reason: Doctor's Order 80 mg PO DAILY 90 tabs 3RF duloxetine Discontinued Reason: Doctor's Order 120 mg (2 x 60 mg) PO DAILY 60 caps 6RF empagliflozin (Jardiance) Discontinued Reason: Doctor's Order 25 mg PO QAM 30 tabs 6RF E11.65 - Type 2 diabetes mellitus with hyperglycemia, 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
== END 2023-10-26 11:42 | disposition left against medical advice (07) ==
PROVIDERS: PCP Registered Nurse; Visit Provider Physician Assistant
DX: Z76.0 Encounter for issue of repeat prescription (principal)
CPT/HCPCS: 99204

== ENCOUNTER 2023-11-06 09:33 | Outpatient (AMB) | payer MEDICARE, SELFPAY ==
--- NOTE | 2023-11-06 09:34 | A.OFFPC_ITS ---
Vital Signs 11/06/23 09:35 11/06/23 10:08 Height 5 ft 3 in Weight 187 lb BMI 33.1 BP 128/70 Blood Pressure Location Lt brachial Position Sitting Pulse 104 H 94 Pulse Source Pulse Oximeter Auscultation Pulse Oximetry (%) 98 Oxygen Delivery Method Room Air Intake Visit Reasons: Est Care per DC/DM Intake Note: pt is here to establish care w/ new PCP Allergies egg [Egg] Allergy (Intermediate, Verified 11/06/23 09:52) severe GI pain Penicillins Allergy (Intermediate, Verified 11/06/23 09:52) Swelling metformin Allergy (Intermediate, Uncoded 11/06/23 10:08) Abdominal Pain Medication List - Last Reconciled 11/06/23 by JOSHUA Damon blood sugar diagnostic (FreeStyle Lite Strips) As directed four times a day blood-glucose meter (FreeStyle Lite Meter kit) As directed flash glucose scanning reader (FreeStyle Angelica 2 Louann) As directed to monitor blood sugar four or more times a day flash glucose sensor (FreeStyle Angelica 2 Sensor kit) As directed lancets (FreeStyle Lancets) As directed three time a day pen needle, diabetic (BD Ultra-Fine Short Pen Needle) four times a day Tobacco use date assessed: 11/06/23 Fall risk assessment: 2 + Falls in past year Last assessed Fall Risk: 11/06/23 Dental Screening Dental Screen Date: 11/06/23 Did you have a dental visit in the last 12 months?: No Did you have a dental problem in the last 6 months where you did not have access to dental care?: No Was dental information given to patient?: Patient declined HPI HPI Comments History of Present Illness Details patient is a 63-year-old female who I am meeting for the 1st time here to establish care. She is diabetic. Will draw a microalbumin. Patient is stating she is having episodes of polyuria especially at night. 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 She has declined influenza vaccine. Patient Has been educated to follow up with Cardiology. her A1c in office today is 14.0. Patient has not been taking medications for the past several months. Patient states she cannot take metformin she has abdominal pain. Patient will be started on Jardiance and Januvia. will draw fasting labs. she is going to have 1 week follow-up for diabetic Education. Patient will also be given referral to endocrinology. Will be instructed to take blood sugars 1-2 times per day. [facility] Medical History PVD (peripheral vascular disease) Controlled diabetes mellitus without complication, without long-term current use of insulin Sleep apnea Lab test negative for COVID-19 virus BMI 34.0-34.9,adult Hyperlipidemia LDL goal <70 Varicose veins of both lower extremities with pain Myocardial infarction Hyperlipidemia Essential hypertension GERD (gastroesophageal reflux disease) Surgical History H/O colonoscopy Hx of abdominoplasty Hx of section Hx of cardiac cath Family History Father CVD (cardiovascular disease) Myocardial infarction Unknown family medical history Mother Alzheimer's disease Unknown family medical history Brother No problems noted. Sister No problems noted. Sister No problems noted. Son No problems noted. Social History Household Members: Spouse and Children Housing: House Are you a primary point of care technician to a significant other at home: No Do you presently have visiting nurse or other home services: No Alcohol intake: current Alcohol intake frequency: does not drink Patient Tobacco Use Status: Never used Tobacco e-Cigarette/Vaping Use: Never Used service: No Current occupational status: retired Cognitive needs: No Hearing needs: No Vision needs: Yes Questionnaire AUDIT C Alcohol Use Questionnaire (AUDIT-C) 1. How often do you have a drink containing alcohol?: Never Total Score: 0 Review of Systems Const All systems reviewed & are unremarkable except as noted in HPI and below Physical exam (Primary Care) Vital Signs: Last Vital Signs Pulse 104 H 11/06/23 09:35 BP 128/70 11/06/23 09:35 Pulse Ox 98 11/06/23 09:35 Oxygen Delivery Method Room Air 11/06/23 09:35 Care Plan Goal for BP management: Blood pressure is controlled. BMI result Body Mass Index 33.1 Tobacco/Smoking Status: Tobacco use Status Tobacco use date assessed 11/06/23 11/06/23 09:36 Patient Tobacco Use Status Never used Tobacco 11/06/23 09:36 e-Cigarette/Vaping Use Never Used 11/06/23 09:36 Const Other: Appearance: Alert.? Oriented X3.? No acute distress.? Head: Normocephalic, atraumatic, no step-offs or deformities Eyes: Pupils equal, round and reactive to light.? Neck: Normal inspection.? Neck supple.? CVS: Normal heart rate and rhythm.? Pulses normal.? Respiratory: No respiratory distress.? Breath sounds normal.? Neuro: Oriented X 3.? No motor deficit.? No sensory deficit. CN 2-12 intact Results AMB Hemoglobin A1c AMB Hemoglobin A1c 14.0 % Last Edit by Katya Tsang CMA on 11/06/23 09:54 Assessment and Plan Assessment & Plan (1) Diabetes mellitus type 2 with complications: Comment: patient has been educated in the importance of maintaining healthy diet. She has been restarted on medications. Will likely need to titrate up future ap pointments. A1c in office 14.0 this is likely the result of patient's polyuria. 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 She has been given referral for Podiatry. Patient will have appointment in 1 week for diabetic Education. Patient will be given referral to endocrinology. Code(s): E11.8 - Type 2 diabetes mellitus with unspecified complications Plan Draw fasting labs. Orders: Orders Vitamin D 25-OH (D2 and D3) Today Z13.21 - Encounter for screening for nutritional disorder UA CC w/rflx Micro + Cult Today Z13.89 - Encounter for screening for other disorder Lipid Panel Today Z13.220 - Encounter for screening for lipoid disorders Microalbumin, Random (w Creat) Today E11.9 - Type 2 diabetes mellitus without complications Complete Blood Count Auto Diff Today Z13.0 - Encounter for screening for diseases of the blood and blood-forming organs and certain disorders involving the immune mechanism Comprehensive Met. Panel Today Z91.89 - Other specified personal risk factors, not elsewhere classified Vitamin B6 Today Z13.21 - Encounter for screening for nutritional disorder Vitamin B12 Today Z13.21 - Encounter for screening for nutritional disorder TSH reflex Free T4 Today Z13.29 - Encounter for screening for other suspected endocrine disorder AMB Hemoglobin A1c Today Z13.9 - Encounter for screening, unspecified Referrals Endocrinology Referral E11.8 - Type 2 diabetes mellitus with unspecified complications Podiatry Referral E11.8 - Type 2 diabetes mellitus with unspecified complications Medications: New lisinopril 2.5 mg PO DAILY 90 tabs 0RF empagliflozin (Jardiance) 10 mg PO DAILY 90 tabs 0RF sitagliptin phosphate (Januvia) 25 mg PO DAILY 90 tabs 0RF Refilled pen needle, diabetic (BD Ultra-Fine Short Pen Needle) four times a day 120 ea 4RF blood-glucose meter (FreeStyle Lite Meter kit) As directed 1 ea 0RF E11.65 - Type 2 diabetes mellitus with hyperglycemia, Z79.4 - care home (current) use of insulin blood sugar diagnostic (FreeStyle Lite Strips) As directed four times a day 150 ea 6RF E11.65 - Type 2 diabetes mellitus with hyperglycemia, Z79.4 - emt intermediate (current) use of insulin Discontinued flash glucose scanning reader (FreeStyle Angelica 2 Louann) Discontinued Reason: Doctor's Order As directed to monitor blood sugar four or more times a day 1 ea 0RF E11.65 - Type 2 diabetes mellitus with h yperglycemia, Z79.4 - care home (current) use of insulin flash glucose sensor (FreeStyle Angelica 2 Sensor kit) Discontinued Reason: Doctor's Order As directed 2 ea 6RF E11.65 - Type 2 diabetes mellitus with hyperglycemia, Z79.4 - emt intermediate (current) use of insulin Review Patient declined Mammogram: 11/06/23 Declined Pap Smear: 11/06/23 Patient declined Colonoscopy: 11/06/23 Patient declined Diabetic Eye Exam: 11/06/23 Patient declined Pneumococcal Vaccine: 11/06/23 Coding Level of Care Code Est Pt Level 3 (70963) Diagnoses Diabetes mellitus type 2 with complications E11.8 Time Spent (min) 27
[2023-11-06 09:35] VITALS: BP 128/70; PULSE 104; O2SAT 98; BMI 33.1
[2023-11-06 10:08] VITALS: PULSE 94
== END 2023-11-06 10:15 | disposition home or self-care (01) ==
PROVIDERS: PCP Registered Nurse; Visit Provider Nurse Practitioner Primary Care
DX: E11.8 Type 2 diabetes mellitus with unspecified complications (principal)
CPT/HCPCS: 83036; 99213

== ENCOUNTER 2023-11-06 10:14 | Outpatient (REF) | payer MEDICARE, SELFPAY ==
[2023-11-06 13:08] LABS: MANUAL DIFF FLAG NO
[2023-11-06 13:13] LABS: Appearance Urine Clear; Color Urine Yellow; Glucose Urine UA >=1000 mg/dL (Negative); Leukocyte Esterase Urine Negative (Negative); Nitrite Urine Negative (Negative); PH 5.5 (5.0-9.0); Specific Gravity - Urine >= 1.030 (1.005-1.025); UMIC TRIGGER UACC YES; Urine Blood Negative (Negative); Urine Ketones 80 mg/dL (Negative); Urine Protein 30 (1+) mg/dL (Neg-Trace)
[2023-11-06 13:19] LABS: Basophils Percent Auto 0.5 % (0-2); Eosinophils Absolute Auto 0.3 X10*3/uL (0.0-0.4); Eosinophils Percent Auto 4.2 % (0-4); Imm Gran Abs Auto 0.02 X10*3/uL (0.00-0.03); Imm Gran Pct Auto 0.3 % (0.0-0.4); Lymphocytes Absolute Auto 1.5 X10*3/uL (1.2-4.9); Lymphocytes Percent Auto 21.1 % (20-40); Mean Corpuscular HGB Conc 34.9 g/dl (31.0-35.0); Mean Corpuscular Hemoglobin 30.9 pg (27.0-33.0); Mean Corpuscular Volume 88.5 fL (80.0-98.0); Mean Platelet Volume 10.6 fL (9.4-12.3); Monocytes Absolute Auto 0.5 X10*3/uL (0.1-1.2); Monocytes Percent Auto 6.4 % (2-11); Neutrophils Absolute Auto 4.9 x10*3/uL (2.0-8.3); Neutrophils Percent Auto 67.5 % (45-73); Platelet Count 200 X10*3/uL (160-400); Red Blood Count 4.86 X10*6/uL (4.20-5.50); White Blood Count 7.3 X10*3/uL (4.8-10.8)
[2023-11-06 13:21] LABS: Bacteria Urine None Seen (None Seen); Hyaline Casts Urine 0-2 /LPF (0-2); RBC Urine 0-2 /HPF (0-2); Squamous Epithelial Cell Urine 0-2 /HPF (0-2); WBC Urine 0-5 /HPF (0-5)
[2023-11-06 13:56] LABS: Creatinine Urine 29.31 mg/dL; Microalbum/Creatinine Ratio Ur 474.2 ug/mg cr (<30)
[2023-11-06 14:00] LABS: Vitamin B12 697 pg/mL (200-900)
[2023-11-06 14:03] LABS: Alanine Aminotransferase 23 U/L (0-31); Albumin Level 3.7 g/dL (3.5-5.0); Alkaline Phosphatase 95 U/L (39-117); Anion Gap 16 (12-20); Aspartate Amino Transferase 13 U/L (5-31); Bilirubin Total 0.5 mg/dL (0.0-1.0); Blood Urea Nitrogen 13 mg/dL (9-16); Calcium 9.6 mg/dL (8.4-10.2); Carbon Dioxide 22 mmol/L (22-29); Chloride 100 mmol/L (96-108); Cholesterol 230 mg/dL (<200); Estimated Glomerular Filt Rate > 60; Glucose Random 389 mg/dL (60-115); HDL Cholesterol 39 mg/dL (>40); LDL Cholesterol Calculated 134 mg/dL (<100); Sodium 134 mmol/L (135-145); TSH reflex Free T4 0.91 uIU/mL (0.32-4.0); Total Protein 6.9 g/dL (6.5-8.0); Triglycerides 286 mg/dL (<150)
[2023-11-11 11:32] LABS: Vitamin B6 4.8 ng/mL (2.1-21.7)
[2023-11-11 13:33] LABS: Vitamin D 25-OH, D2 <4 ng/mL; Vitamin D 25-OH, D3 29 ng/mL; Vitamin D 25-OH, Total 29 ng/mL (30-100)
== END 2023-11-06 10:15 | disposition home or self-care (01) ==
LOC: HO.HMGCLDS 10:14
PROVIDERS: PCP Nurse Practitioner Primary Care; Visit Provider Nurse Practitioner Primary Care
DX: Z13.0 Encounter for screening for diseases of the blood and blood-forming organs and certain disorders involving the immune mechanism (principal); Z13.29 Encounter for screening for other suspected endocrine disorder; Z13.21 Encounter for screening for nutritional disorder; Z13.220 Encounter for screening for lipoid disorders; E11.9 Type 2 diabetes mellitus without complications; Z91.89 Other specified personal risk factors, not elsewhere classified; Z13.89 Encounter for screening for other disorder
CPT/HCPCS: 36415; 80053; 80061; 81001; 82043; 82306; 82570; 82607; 84207; 84443; 85025